=== PATIENT | female | born 1985 | race Caucasian/White ===

== ENCOUNTER 2017-03-28 07:20 | Emergency (ER) | payer BC ==
[~2017-03-28] VITALS: Ht 162.6 cm; Wt 72.7 kg
[~2017-03-28 07:20] MED LIST: IBU800 M1 PO; MOTRIN 600600 MG/TAB PO; PERCOCET 325 MG1 TA2 PO; PRENATAL1 TA1 PO
[2017-03-28 07:23] VITALS: TEMP 97.8
[2017-03-28] MEDS ORDERED: AMOXICILLIN875 MG PO (07:26)
[2017-03-28 07:56] LABS: PH 5 (5-8); URINE APPEARANCE Hazy; URINE BACTERIA None Seen /hpf; URINE BILIRUBIN Negative (NEGATIVE); URINE BLOOD 3+ (NEGATIVE); URINE COLOR Yellow; URINE GLUCOSE 1+ (NEGATIVE); URINE KETONE Negative (NEGATIVE); URINE RBC >50 /hpf; URINE UROBILINOGEN Negative (NEGATIVE)
[2017-03-28 08:12] LABS: BASO % 0.2 % (0.0-2.0); EOS % 0.3 % (0-4.0); GRAN # 8.2 (1.4-6.5); GRAN % 83.3 % (42.2-75.2); HEMATOCRIT 42.3 % (37.0-47.0); HEMOGLOBIN 14.6 g/dl (12.5-16.0); LYMPH # 1.3 (1.2-3.4); LYMPH % 12.7 % (20.0-51.0); MEAN CELL VOLUME 90 fl (80.0-100.0); MEAN CORPUSCULAR HEMOGLOBIN 31 pg (27.0-31.0); MEAN CORPUSCULAR HGB CONC 35 g/dl (33.0-37.0); MEAN PLATELET VOLUME 10.6 fl (7.4-10.4); MONO # 0.3 (0.1-0.6); MONO % 3.2 % (1.7-9.3); PLATELET COUNT 245 K/mm3 (130-400); RED BLOOD COUNT 4.68 M/mm3 (4.10-5.30); REDCELL DISTRIBUTION WIDTH-CV 12.2 % (11.5-14.5); WHITE BLOOD COUNT 9.9 K/mm3 (4.8-10.8)
[2017-03-28 08:41] LABS: ADJUSTED CALCIUM 8.9 mg/dL (8.4-10.2); ALBUMIN 3.9 gm/dL (3.5-5.0); BILIRUBIN,TOTAL 1.5 mg/dL (0.0-1.0); CALCIUM 8.8 mg/dL (8.4-10.2); CREATININE, serum 0.76 mg/dL (0.52-1.25); POTASSIUM 3.7 mmol/L (3.4-5.0)
[2017-03-28] MEDS ORDERED: NORCO 325 MG-51 TAB PO (10:52)
[2017-03-28] MEDS ORDERED: ZOFRAN 4MG T4 MG/TAB PO (10:52)
[2017-03-28 11:04] VITALS: BP 101/59; PULSE 80
== END 2017-03-28 11:05 | disposition home or self-care (01) ==
LOC: COL.ER 07:20
PROVIDERS: Emergency Medicine
DX: O26.891 Other specified pregnancy related conditions, first trimester (principal); R10.9 Unspecified abdominal pain; Z3A.01 Less than 8 weeks gestation of pregnancy
CPT/HCPCS: J1170; J2550; J7030

== ENCOUNTER 2017-11-15 01:30 | Inpatient (IN) | payer BC ==
[2017-11-15] VITALS (23 sets, daily range): BP systolic 108–154; BP diastolic 57–91; PULSE 83–118; TEMP 98–98.9
[~2017-11-15] VITALS: Ht 162.6 cm; Wt 81.4 kg
[~2017-11-15 01:30] MED LIST changes: +AMOXICILLIN875 MG PO; +NORCO 325 MG-51 TAB PO; +ZOFRAN 4MG T4 MG/TAB PO
[2017-11-15 05:42] LABS: BASO % 0.2 % (0.0-2.0); EOS # 0.1 (0.0-0.7); EOS % 0.4 % (0-4.0); GRAN # 9.4 (1.4-6.5); HEMOGLOBIN 11.7 g/dl (12.5-16.0); LYMPH # 1.5 (1.2-3.4); LYMPH % 12.5 % (20.0-51.0); MEAN CELL VOLUME 87 fl (80.0-100.0); MEAN CORPUSCULAR HEMOGLOBIN 28 pg (27.0-31.0); MEAN CORPUSCULAR HGB CONC 33 g/dl (33.0-37.0); MEAN PLATELET VOLUME 11.9 fl (7.4-10.4); MONO # 0.8 (0.1-0.6); MONO % 6.5 % (1.7-9.3); PLATELET COUNT 251 K/mm3 (130-400); RED BLOOD COUNT 4.14 M/mm3 (4.10-5.30); REDCELL DISTRIBUTION WIDTH-CV 13.5 % (11.5-14.5)
[2017-11-15 05:49] LABS: HEMATOCRIT 35.8 % (37.0-47.0)
[2017-11-16 07:21] VITALS: BP 112/73; PULSE 78; TEMP 97.4
[2017-11-16] MEDS ORDERED: IBU800 M1 PO (09:22)
[2017-11-16 16:10] VITALS: BP 123/71; PULSE 93; TEMP 98
[2017-11-16 20:14] VITALS: BP 125/87; PULSE 107; TEMP 98.4
[2017-11-17 08:00] VITALS: BP 120/77; PULSE 89
== END 2017-11-17 10:20 | disposition home or self-care (01) | DRG 775 ==
LOC: LDRO 01:30 → LDR 01:31 → OB 08:30
PROVIDERS: Obstetrics & Gynecology
PROC: 10E0XZZ Delivery of Products of Conception, External Approach (ICD-10-PCS; principal; 2017-11-15)
PROC: 0HQ9XZZ Repair Perineum Skin, External Approach (ICD-10-PCS; 2017-11-15)
DX: O99.824 Streptococcus B carrier state complicating childbirth (principal); O69.81X0 Labor and delivery complicated by cord around neck, without compression, not applicable or unspecified; O70.0 First degree perineal laceration during delivery; Z37.0 Single live birth; Z3A.38 38 weeks gestation of pregnancy
CPT/HCPCS: J2540; J2590; J7120

== ENCOUNTER → 2020-04-28 | Outpatient (CLI) | payer BC | LOC: DIA.ED 13:52 | DX: O24.419 Gestational diabetes mellitus in pregnancy, unspecified control (principal) | CPT/HCPCS: G0108 ==

== ENCOUNTER → 2020-05-08 | Outpatient (CLI) | payer BC | LOC: DIA.ED 08:03 | DX: O24.419 Gestational diabetes mellitus in pregnancy, unspecified control (principal) | CPT/HCPCS: G0108 ==

== ENCOUNTER → 2020-06-19 | Outpatient (CLI) | payer BC ==
[~2020-06-19] MED LIST changes: +IBU600 MG PO; +NEWMANS TOP; +PRENATAL TABLET PO
== END | disposition still patient (30) ==
LOC: ZCOL.LAB 08:00
DX: Z20.828 Contact with and (suspected) exposure to other viral communicable diseases (principal)

== ENCOUNTER 2020-06-24 07:00 | Inpatient (IN) | payer BC ==
[~2020-06-24] VITALS: Ht 162.6 cm; Wt 87.3 kg
[2020-06-24] VITALS (32 sets, daily range): BP systolic 93–143; BP diastolic 62–89; PULSE 75–146; TEMP 97.8–98.5
[~2020-06-24 07:00] MED LIST changes: -IBU600 MG PO; -NEWMANS TOP; -PRENATAL TABLET PO
--- NOTE | 2020-06-24 07:05 | NUR ---
0705- Pt. ambulatory to our unit by herself this morning. a at 39.0 for an induction. Stated her will be up later after they get childcare for their kids at home. Orientated to room and changed into clean gown. Pt. reports GFM, no LOF, occasionally CTX and no bleeding. 0713- EFM and TOCO on and tracing. Vitals taken, assessment completed, consents signed, IV started.
[2020-06-24] MEDS ORDERED: PRENATAL TABLET PO (07:49)
[2020-06-24 08:16] LABS: BASO % 0.1 % (0.0-2.0); EOS % 0.6 % (0-4.0); GRAN # 5.1 (1.4-6.5); GRAN % 72.9 % (42.2-75.2); HEMATOCRIT 37.8 % (37.0-47.0); HEMOGLOBIN 12.7 g/dl (12.5-16.0); LYMPH # 1.3 (1.2-3.4); LYMPH % 17.8 % (20.0-51.0); MEAN CELL VOLUME 86 fl (80.0-100.0); MEAN CORPUSCULAR HEMOGLOBIN 29 pg (27.0-31.0); MEAN CORPUSCULAR HGB CONC 34 g/dl (33.0-37.0); MEAN PLATELET VOLUME 11.8 fl (7.4-10.4); MONO # 0.6 (0.1-0.6); MONO % 8.3 % (1.7-9.3); PLATELET COUNT 224 K/mm3 (130-400); REDCELL DISTRIBUTION WIDTH-CV 13.4 % (11.5-14.5)
--- NOTE | 2020-06-24 08:35 | NUR ---
0835- DR. HAUSER AND THIS RN TO BEDSIDE FOR SVE AND AROM. PROVIDER DISCUSSED PLAN OF CARE WITH PATIENT AND ANSWERED QUESTIONS. 0840- AROM WITH SMALL AMOUNT OF CLEAR FLUID NOTED BY PROVIDER. SVE 3-/-2. PT. DENIES FURTHER NEEDS AND CALL LIGHT IS WITHIN REACH.
--- NOTE | 2020-06-24 09:50 | NUR ---
0950- THIS RN TO BEDSIDE TO HELP SET PT. UP FOR EPIDURAL PLACEMENT. TATYANA ROACH IN THE ROOM WELL DURING THIS TIME. MATERNAL O2 PLACED ON PT. FHR TRACING INTERMITTENTLY DUE TO MATERNAL POSITION. THIS RN REMAINS AT BEDSIDE. 0959- SINGLE SHOT, SEE ANESTHESIA RECORD. 1000- TEST DOSE, SEE ANESTHESIA RECORD.
--- NOTE | 2020-06-24 12:50 | NUR ---
1250- PT. CALLED OUT FEELING MORE PRESSURE AND WANTING TO BE CHECKED. 1252- Nickolas HASSAN RN SVE COMPLETE AND +1 1253- THIS RN TO BEDSIDE AFTER BREAK. NOTIFIED OF BEING COMPLETE AND +1. 1255- THIS RN CALLED PROVIDER TO UPDATE HER, SEE PHYSICIAN RECORD. ALL OTHER STAFF NOTIFIED. STARTING SETTING UP ROOM AND PATIENT FOR DELIVERY. THIS RN REMAINS AT BEDSIDE. 1257- BROWN DRAINED, 150CC NOTED TO BE OUT OF YELLOW CLEAR URINE. 1304- DR. HAUSER ON UNIT AND GETTING DRESSED. BROWN TAKEN OUT BY THIS RN. 1305- DR. HAUSER TO BEDSIDE FOR DELIVERY. BED BROKEN DOWN AND PATIENT FEET PUT UP IN STIRRUPS. 1306- FIRST PUSH WITH PROVIDER AT BEDSIDE. 1309- OF VIABLE MALE INFANT. INFANT PLACED TO MOTHER ABDOMEN WHERE NURSERY NURSE ASSUMES CARE. PITOCIN TURNED OFF. 1314- OF PLACENTA. FUNDUS MASSAGED TO FIRM BY PROVIDER AND SMALL AMOUNT OF BRIGHT RED BLOOD NOTED. 1ST DEGREE TEAR NOTED BY PROVIDER AND REPAIRS. EBL NOTED TO BE 150CC BY PROVIDER. PITOCIN TURNED ON PER PROTOCOL TO 333ML/HR. 1315- FUNDUS FIRM WITH SMALL AMOUNT OF BRIGHT RED BLOOD NOTED. VITALS TAKEN. BED PUT BACK TOGETHER AND NEW CHUX, PERIPAD AND ICEPACK TO PT. PERINEUM. RECOVERY PERIOD STARTED.
--- NOTE | 2020-06-24 15:35 | NUR ---
1535- THIS RN TO BEDSIDE TO ASSESS PATIENTS LEGS FOR GETTING UP TO BATHROOM. PATIENT ABLE TO LIFT AND HOLD BOTH LEGS FOR GREATER THAN 5 SECONDS. PATIENT SAT ON SIDE OF THE BED WITH NO PROBLEMS AND EPIDURAL WAS REMOVED DURING THIS TIME, INTACT. QUARTER SIZE BRUISE WAS NOTED AT THE INSERTION SITE, BUT NO DRAINAGE. 1545- PT. IN THE BATHROOM AND VOIDED. HELPED PATIENT GET CLEANED UP, NEW MESH UNDIES, PERIPAD AND ICE PACK TO PERINEUM. HELPED PATIENT CHANGED INTO HER OWN PERSONAL CLEAN CLOTHES. PT. TOLERATED AMBULATION WELL WITH NO PROBLEMS. 1550- PT. AMBULATED TO ROOM 207 WITH NO DIFFICULTIES. ORIENTATED TO ROOM. CALL LIGHT WITHIN REACH. DISCUSSED PLAN OF CARE. PT. DENIES FURTHER NEEDS.
[2020-06-25 01:55] VITALS: BP 126/81; PULSE 78; TEMP 98.4
[2020-06-25 07:45] VITALS: BP 125/81; PULSE 85; TEMP 97.5
[2020-06-25] MEDS ORDERED: IBU600 MG PO (09:25)
[2020-06-25] MEDS ORDERED: PERCOCET 325 MG1 TA2 PO (09:25)
[2020-06-25] MEDS ORDERED: NEWMANS TOP (09:26)
--- NOTE | 2020-06-25 09:37 | NUR ---
Initial visit; Patient thanked Business Employment Specialist for offering congratulations and God's blessings for the of her son. Business Employment Specialist thanked family for choosing [facility].
== END 2020-06-25 15:10 | disposition home or self-care (01) | DRG 807 ==
LOC: LDR 07:00 → OB 10:29
PROVIDERS: ADMIT Student in an Organized Health Care Education/Training Program
PROC: 10E0XZZ Delivery of Products of Conception, External Approach (ICD-10-PCS; principal; 2020-06-24)
PROC: 10907ZC Drainage of Amniotic Fluid, Therapeutic from Products of Conception, Via Natural or Artificial Opening (ICD-10-PCS; 2020-06-24)
PROC: 0HQ9XZZ Repair Perineum Skin, External Approach (ICD-10-PCS; 2020-06-24)
DX: O24.420 Gestational diabetes mellitus in childbirth, diet controlled (principal); Z37.0 Single live birth; O70.0 First degree perineal laceration during delivery; Z3A.39 39 weeks gestation of pregnancy
CPT/HCPCS: J2590; J2795; J7120